=== PATIENT | female | born 1985 | race African-American/Black ===

== ENCOUNTER 2022-07-08 00:28 | Emergency (ER) | payer SELFPAY ==
[~2022-07-08] VITALS: Ht 167.6 cm; Wt 81.6 kg
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
[2022-07-08 03:10] VITALS: BP 123/67
[2022-07-08] MEDS ORDERED: NALO4SPR BNOSTRILS (03:32)
--- NOTE | 2022-07-08 05:30 | NUR ---
Patient discharged to home in stable condition. Written and verbal after care instructions given. Patient verbalizes understanding of instruction.
== END 2022-07-08 05:31 | disposition home or self-care (01) ==
LOC: ER 00:29 → EDBD 00:29 → ER 05:31
DX: R40.4 Transient alteration of awareness (principal); T40.411A Poisoning by fentanyl or fentanyl analogs, accidental (unintentional), initial encounter; Y92.89 Other specified places as the place of occurrence of the external cause